=== PATIENT | male | born 1945 | race Caucasian/White ===

== ENCOUNTER 2024-03-08 13:12 | Emergency (ER) | payer MEDICARE, BC ==
[~2024-03-08] VITALS: Ht 160 cm; Wt 53.9 kg
[~2024-03-08 13:12] MED LIST: CLOP75TA34 PO; LEVO100T9 PO
[2024-03-08 13:48] LABS: ALANINE AMINOTRANSFERASE 49 U/L (12-78); ALBUMIN 2.2 G/DL (3.4-5.0); ALBUMIN/GLOBULIN RATIO 0.4 (1.1-1.5); ALKALINE PHOSPHATASE 151 IU/L (46-116); ANION GAP 11 (8-16); ASPARTATE AMINO TRANSFERASE 48 U/L (10-37); BILIRUBIN,TOTAL 0.9 MG/DL (0.1-1.0); BLOOD UREA NITROGEN 24 MG/DL (7-18); BUN/CREATININE RATIO 15.1 (10.0-20.0); CHLORIDE 96 MMOL/L (99-107); CREATININE 1.59 MG/DL (0.60-1.10); GLUCOSE 119 MG/DL (70-104); POTASSIUM 3.5 MMOL/L (3.5-5.1); SODIUM 132 MMOL/L (135-145); TOTAL CARBON DIOXIDE 24.7 MMOL/L (24-32); TOTAL PROTEIN 7.8 G/DL (6.4-8.2); eCRCL 30 ML/MIN; eGFR 43 ML/MIN
[2024-03-08 13:55] LABS: PRO BRAIN NATRIURETIC PEPTIDE 215 PG/ML (0-450)
[2024-03-08 14:20] LABS: BASOPHILS # (AUTO) 0.1 X10'3 (0-0.2); BASOPHILS % (AUTO) 0.4 % (0-1); EOSINOPHILS # (AUTO) 0.1 X10'3 (0-0.9); EOSINOPHILS % (AUTO) 0.3 % (0-6); HEMATOCRIT 38.1 % (42.0-52.0); HEMOGLOBIN 12.6 g/dl (14.0-17.9); LYMPHOCYTES # (AUTO) 1.1 X10'3 (1.1-4.8); LYMPHOCYTES % (AUTO) 4.5 % (21-51); MEAN CORPUSCULAR HEMOGLOBIN 28.1 PG (27.0-31.0); MEAN CORPUSCULAR VOLUME 85.2 FL (78-98); MEAN PLATELET VOLUME 7.3 FL (7.4-10.4); MONOCYTES # (AUTO) 1.7 X10'3 (0-0.9); MONOCYTES % (AUTO) 6.9 % (2-12); NEUTROPHILS # (AUTO) 21.6 X10'3 (1.8-7.7); NEUTROPHILS % (AUTO) 87.9 % (42-75); PLATELET COUNT 427 X10'3 (140-440); RED BLOOD COUNT 4.47 X10'6 (4.70-6.10); RED CELL DISTRIBUTION WIDTH 15.3 % (11.5-14.5); WHITE BLOOD COUNT 24.6 X10'3 (4.5-11.0)
[2024-03-08] MEDS: ipratropium/albuterol 3ml nebule NEB ONE (15:40)
[2024-03-08] MEDS: methylPREDNISolone sod succ 125mg/2ml vial IV ONE (15:55)
[2024-03-08 16:06] VITALS: PULSE 83; RESP 17; O2SAT 98
[2024-03-08 16:30] VITALS: PULSE 84; RESP 17; O2SAT 100
[2024-03-08] MEDS: magnesium 2GM in 50ml NS 50 ML IV SCH (16:57)
[2024-03-08 17:30] VITALS: BP 148/74; PULSE 81; TEMP 98.8; O2SAT 92
[2024-03-08] MEDS: albuterol 2.5 MG/3 ML nebule CONTNEB PRN (17:50)
[2024-03-08 18:31] VITALS: RESP 18
[2024-03-08] MEDS ORDERED: [UNRECOGNIZED DRUG - OTHER] (19:23)
== END 2024-03-08 19:37 | disposition home or self-care (01) ==
LOC: ER 13:13
DX: J44.1 Chronic obstructive pulmonary disease with (acute) exacerbation (principal); J45.909 Unspecified asthma, uncomplicated; Z88.2 Allergy status to sulfonamides; Z88.8 Allergy status to other drugs, medicaments and biological substances
CPT/HCPCS: 36415; 71045; 80053; 83880; 84484; 85025; 93005; 94640; 96365; 96375; 99285; J2930; J3475; A7015

== ENCOUNTER 2025-02-14 15:59 | Inpatient (IN) | payer MEDICARE, BC ==
[~2025-02-14] VITALS: Ht 167.6 cm; Wt 67.1 kg
[~2025-02-14 15:59] MED LIST changes: +ALBU17AE26; +ASPI-1397 PO; +FLUT1BLS13 INH; +GABA-1555 PO; +GUAI600T45 PO; +LACT1CAP26 PO; -LEVO100T9 PO; +LEVO88TA7 PO; +OMEP40CA21 PO
[2025-02-14 16:29] LABS: BASOPHILS # (AUTO) 0.1 X10'3 (0-0.2); BASOPHILS % (AUTO) 0.6 % (0-1); EOSINOPHILS # (AUTO) 0.1 X10'3 (0-0.9); EOSINOPHILS % (AUTO) 0.8 % (0-6); HEMATOCRIT 47.6 % (42.0-52.0); HEMOGLOBIN 15.7 g/dl (14.0-17.9); LYMPHOCYTES # (AUTO) 1.1 X10'3 (1.1-4.8); LYMPHOCYTES % (AUTO) 12.9 % (21-51); MEAN CORPUSCULAR HEMOGLOBIN 28.3 PG (27.0-31.0); MEAN CORPUSCULAR HGB CONC 32.9 g/dL (33.0-36.5); MEAN PLATELET VOLUME 7.5 FL (7.4-10.4); MONOCYTES # (AUTO) 0.8 X10'3 (0-0.9); MONOCYTES % (AUTO) 8.9 % (2-12); NEUTROPHILS # (AUTO) 6.6 X10'3 (1.8-7.7); NEUTROPHILS % (AUTO) 76.8 % (42-75); PLATELET COUNT 382 X10'3 (140-440); RED BLOOD COUNT 5.54 X10'6 (4.70-6.10); RED CELL DISTRIBUTION WIDTH 16.9 % (11.5-14.5); WHITE BLOOD COUNT 8.6 X10'3 (4.5-11.0)
[2025-02-14 16:55] LABS: ALANINE AMINOTRANSFERASE 31 U/L (12-78); ALBUMIN 2.9 G/DL (3.4-5.0); ALBUMIN/GLOBULIN RATIO 0.6 (1.1-1.5); ALKALINE PHOSPHATASE 109 IU/L (46-116); ANION GAP 10 (8-16); ASPARTATE AMINO TRANSFERASE 30 U/L (10-37); BILIRUBIN,TOTAL 0.9 MG/DL (0.1-1.0); BLOOD UREA NITROGEN 25 MG/DL (7-18); BUN/CREATININE RATIO 18.2 (10.0-20.0); CALCIUM 9.2 MG/DL (8.5-10.1); CHLORIDE 105 MMOL/L (99-107); CREATININE 1.37 MG/DL (0.60-1.10); GLUCOSE 103 MG/DL (70-104); POTASSIUM 4.1 MMOL/L (3.5-5.1); SODIUM 139 MMOL/L (135-145); TOTAL CARBON DIOXIDE 23.6 MMOL/L (24-32); TOTAL PROTEIN 7.7 G/DL (6.4-8.2); eCRCL 41 ML/MIN; eGFR 50 ML/MIN
[2025-02-14 17:03] LABS: PRO BRAIN NATRIURETIC PEPTIDE 153 PG/ML (0-450)
[2025-02-14] MEDS ORDERED: iohexol 350MG/ML 100ml bottle IV ONE ×2 (18:45→19:32)
[2025-02-14] MEDS: normal saline 1000ml 1,000 ML IV ONE (19:43)
[2025-02-14] MEDS: CefTRIAXone/D5W-Rocephin 1gm 50 ML IV ONE (19:45)
[2025-02-14] MEDS: azithromycin/NS 500mg/250ml 250 ML IV ONE (20:17)
[2025-02-14] MEDS ORDERED: albuterol 2.5 MG/3 ML nebule NEB PRN (22:25)
[2025-02-14] MEDS ORDERED: acetaminophen 325mg tablet PO PRN ×2 (22:25)
[2025-02-14] MEDS ORDERED: mag hydrox/Alum hydrox/simeth 30ml oral suspension PO PRN (22:25)
[2025-02-14] MEDS ORDERED: potassium Cl 20 mEq SR tablet PO PRN ×2 (22:25)
[2025-02-14] MEDS ORDERED: HYDROmorphone/PF 0.2 MG/ML SYRINGE IV PRN (22:25)
[2025-02-14] MEDS ORDERED: ondansetron/PF 4mg/2ml inj IV PRN (22:25)
[2025-02-14] MEDS ORDERED: potassium Cl 40MEQ/1/2NS 520ml 520 ML IV PRN (22:25)
[2025-02-14] MEDS ORDERED: magnesium sulf-water 4G/100mL 100 ML IV PRN (22:25)
[2025-02-14] MEDS ORDERED: magnesium sulf-water 2g/50mL 50 ML IV PRN (22:25)
[2025-02-14] MEDS ORDERED: magnesium hydroxide 30ml (MOM) UD suspension PO PRN (22:25)
[2025-02-14] MEDS ORDERED: magnesium Cl slow-release 64mg tablet PO PRN (22:25)
[2025-02-14 22:58] VITALS: PULSE 86; RESP 18; O2SAT 95
[2025-02-14] MEDS: ipratropium/albuterol 3ml nebule NEB SCH (22:59)
[2025-02-14] MEDS ORDERED: FLUT1BLS11 PO (22:59)
[2025-02-14 23:01] LABS: FREE T4 (FREE THYROXINE) 1.49 NG/DL (0.73-1.40); THYROID STIMULATING HORMONE 2.38 ulU/ml (0.34-4.50)
[2025-02-14 23:02] LABS: HEMOGLOBIN A1C 6.1 % (4.5-6.2)
[2025-02-14] MEDS ORDERED: IPRA3AMP31 NEB (23:02)
[2025-02-14] MEDS: normal saline 1000ml 1,000 ML IV SCH (23:11)
[2025-02-14 23:33] LABS: BILIRUBIN,URINE NEGATIVE (Neg); CLARITY,URINE CLEAR (Clear); COLOR,URINE YELLOW (Yellow); GLUCOSE, URINE NEGATIVE (Neg); KETONES,URINE TRACE mg/dl (Neg); LEUKOCYTE ESTERASE ,URINE NEGATIVE (Neg); NITRITES, URINE NEGATIVE (Neg); OCCULT BLOOD,URINE NEGATIVE (Neg); PH,URINE 5.5 (4.8-8.0); PROTEIN,URINE 30 mg/dl (Neg); UROBILINOGEN,URINE 0.2 E.U/dL (0.2-1.0)
[2025-02-14 23:43] LABS: UA COLLECTION TYPE NON-SPECIFIED
[2025-02-14 23:44] LABS: BACTERIA,URINE FEW /HPF (Neg); MUCUS STRANDS MODERATE /LPF (Neg); RBC,URINE NONE SEEN /HPF (0-2); SQUAMOUS EPITHELIAL CELL,UR FEW /LPF (FEW); WBC,URINE 0-4 /HPF (0-4)
[2025-02-15] VITALS (19 sets, daily range): BP systolic 113–158; BP diastolic 72–98; PULSE 88–115; RESP 15–40; TEMP 97.3–98; O2SAT 91–98
[2025-02-15] MEDS: tuberculin, purif. prot. deriv. 5 units/0.1ml ID ONE (04:12)
[2025-02-15 06:51] LABS: BASOPHILS % (AUTO) 0.6 % (0-1); EOSINOPHILS # (AUTO) 0.1 X10'3 (0-0.9); EOSINOPHILS % (AUTO) 1.5 % (0-6); HEMATOCRIT 42.1 % (42.0-52.0); HEMOGLOBIN 14.1 g/dl (14.0-17.9); LYMPHOCYTES # (AUTO) 1.1 X10'3 (1.1-4.8); LYMPHOCYTES % (AUTO) 15.8 % (21-51); MEAN CORPUSCULAR HEMOGLOBIN 28.9 PG (27.0-31.0); MEAN CORPUSCULAR HGB CONC 33.4 g/dL (33.0-36.5); MEAN CORPUSCULAR VOLUME 86.5 FL (78-98); MEAN PLATELET VOLUME 7.5 FL (7.4-10.4); MONOCYTES # (AUTO) 0.6 X10'3 (0-0.9); MONOCYTES % (AUTO) 9.3 % (2-12); NEUTROPHILS % (AUTO) 72.8 % (42-75); PLATELET COUNT 321 X10'3 (140-440); RED BLOOD COUNT 4.87 X10'6 (4.70-6.10); RED CELL DISTRIBUTION WIDTH 17.3 % (11.5-14.5); WHITE BLOOD COUNT 6.8 X10'3 (4.5-11.0)
[2025-02-15 07:36] LABS: ALBUMIN 2.5 G/DL (3.4-5.0); ANION GAP 9 (8-16); BLOOD UREA NITROGEN 18 MG/DL (7-18); BUN/CREATININE RATIO 14.6 (10.0-20.0); CALCIUM 8.4 MG/DL (8.5-10.1); CHLORIDE 108 MMOL/L (99-107); CHOLESTEROL 154 MG/DL (0-200); CREATININE 1.23 MG/DL (0.60-1.10); GLUCOSE 75 MG/DL (70-104); HDL CHOLESTEROL 51 MG/DL (35-60); LDL CHOLESTEROL 80 MG/DL (50-100); MAGNESIUM 2.1 MG/DL (1.5-2.4); POTASSIUM 3.8 MMOL/L (3.5-5.1); SODIUM 140 MMOL/L (135-145); TOTAL CARBON DIOXIDE 22.6 MMOL/L (24-32); TRIGLYCERIDES 128 MG/DL (20-135); eCRCL 45 ML/MIN; eGFR 57 ML/MIN
[2025-02-15] MEDS: K and/or MAG REPLACEMENT MC SCH (08:00)
[2025-02-15] MEDS ORDERED: albuterol 60 PUFF/8GM Inhaler (90mcg/1 puff) IH PRN (08:10)
[2025-02-15] MEDS ORDERED: ipratropium/albuterol 3ml nebule NEB PRN (08:35)
[2025-02-15 09:28] LABS: PLATELET ESTIMATE NORMAL; TOTAL CELLS COUNTED 100
[2025-02-15] MEDS: methylPREDNISolone sod succ 125mg/2ml vial IV ONE (09:32)
[2025-02-15] MEDS: CefTRIAXone/D5W-Rocephin 1gm 50 ML IV SCH (09:32)
[2025-02-15] MEDS: pantoprazole 40mg Tablet.DR PO SCH (09:33)
[2025-02-15] MEDS: heparin, porcine 5000 units/ml vial SQ SCH (09:33)
[2025-02-15] MEDS: docusate sod 100mg capsule PO SCH (09:33)
[2025-02-15] MEDS: ipratropium/albuterol 3ml nebule NEB SCH (10:48)
[2025-02-15] MEDS: azithromycin 250mg tablet PO SCH (11:23)
[2025-02-15] MEDS: methylPREDNISolone sod succ 125mg/2ml vial IV SCH (16:09)
[2025-02-15] MEDS ORDERED: OMEPRAZOLE 20 MG TABLET PO SCH ×3 (20:50→20:58)
[2025-02-15] MEDS: gabapentin 400mg capsule PO SCH (22:26)
[2025-02-15] MEDS: OMEPRAZOLE 20 MG TABLET PO SCH (22:27)
[2025-02-16] VITALS (19 sets, daily range): BP systolic 102–129; BP diastolic 49–76; PULSE 80–99; RESP 18–26; TEMP 97.2–97.7; O2SAT 91–100
[2025-02-16 06:47] LABS: BASOPHILS % (AUTO) 0.2 % (0-1); EOSINOPHILS % (AUTO) 0 % (0-6); HEMATOCRIT 38.1 % (42.0-52.0); HEMOGLOBIN 12.7 g/dl (14.0-17.9); LYMPHOCYTES # (AUTO) 0.6 X10'3 (1.1-4.8); LYMPHOCYTES % (AUTO) 6.2 % (21-51); MEAN CORPUSCULAR HEMOGLOBIN 28.8 PG (27.0-31.0); MEAN CORPUSCULAR HGB CONC 33.3 g/dL (33.0-36.5); MEAN CORPUSCULAR VOLUME 86.6 FL (78-98); MEAN PLATELET VOLUME 7.5 FL (7.4-10.4); MONOCYTES # (AUTO) 0.5 X10'3 (0-0.9); MONOCYTES % (AUTO) 5.5 % (2-12); NEUTROPHILS # (AUTO) 7.9 X10'3 (1.8-7.7); NEUTROPHILS % (AUTO) 88.1 % (42-75); PLATELET COUNT 275 X10'3 (140-440); RED CELL DISTRIBUTION WIDTH 17.6 % (11.5-14.5)
[2025-02-16 07:02] LABS: ALBUMIN 2.2 G/DL (3.4-5.0); ANION GAP 10 (8-16); BLOOD UREA NITROGEN 18 MG/DL (7-18); BUN/CREATININE RATIO 16.4 (10.0-20.0); CALCIUM 8.2 MG/DL (8.5-10.1); CHLORIDE 111 MMOL/L (99-107); GLUCOSE 153 MG/DL (70-104); POTASSIUM 3.9 MMOL/L (3.5-5.1); SODIUM 142 MMOL/L (135-145); TOTAL CARBON DIOXIDE 20.6 MMOL/L (24-32); eCRCL 51 ML/MIN; eGFR 65 ML/MIN
[2025-02-16] MEDS ORDERED: levoTHYROXINE 88mcg tablet PO SCH (08:00)
[2025-02-16] MEDS: ringers solution, lacted 1,000 ML IV SCH (08:31)
[2025-02-16] MEDS: aspirin 81mg, enteric-coated 1 TAB TABLET.DR PO SCH (08:32)
[2025-02-16 08:37] LABS: APTT 27 SECONDS (22-32); INR 1.3 INR; PROTHROMBIN TIME 12.6 SECONDS (9.0-12.0)
[2025-02-16 11:15] LABS: ABG HCO3 18.6 mmol/L (21.0-28.0); ABG OXYGEN SATURATION 96.4 % (94.0-98.0); ABG PCO2 (T) 26.7 mmHg (35.0-48.0); ABG PH (T) 7.458 (7.350-7.450); ABG PO2 (T) 79.5 mmHg (83.0-108.0); ALLEN'S TEST POSITIVE; FCOHb 0.6 % (0.5-1.5); FHHb 3.6 % (0.0-5.0); FLOW 5 L/min; FMetHb 0.3 % (0.0-1.5); FO2Hb 95.5 % (94.0-98.0); MODE NASAL CANNULA; PATIENT TEMPERATURE 36.4
[2025-02-17] VITALS (18 sets, daily range): BP systolic 110–147; BP diastolic 64–88; PULSE 75–107; RESP 12–32; TEMP 97–98.2; O2SAT 95–100
[2025-02-17 05:14] LABS: HBSAG SCREEN Negative (Negative); HEP B CORE AB, TOT Negative (Negative); HEP B SURF AB Reactive (.); HEPATITIS C VIRUS ANTIBODY Non Reactive (Non Reactive)
[2025-02-17 07:22] LABS: ALBUMIN 2.2 G/DL (3.4-5.0); ANION GAP 8 (8-16); BLOOD UREA NITROGEN 25 MG/DL (7-18); BUN/CREATININE RATIO 21.2 (10.0-20.0); CALCIUM 8.4 MG/DL (8.5-10.1); CHLORIDE 110 MMOL/L (99-107); CREATININE 1.18 MG/DL (0.60-1.10); GLUCOSE 194 MG/DL (70-104); MAGNESIUM 2.2 MG/DL (1.5-2.4); POTASSIUM 4.2 MMOL/L (3.5-5.1); SODIUM 140 MMOL/L (135-145); TOTAL CARBON DIOXIDE 22.4 MMOL/L (24-32); eCRCL 47 ML/MIN; eGFR 60 ML/MIN
[2025-02-17 07:27] LABS: BASOPHILS % (AUTO) 0.3 % (0-1); EOSINOPHILS % (AUTO) 0 % (0-6); HEMATOCRIT 37.6 % (42.0-52.0); LYMPHOCYTES # (AUTO) 0.4 X10'3 (1.1-4.8); LYMPHOCYTES % (AUTO) 4.1 % (21-51); MEAN CORPUSCULAR HGB CONC 31.8 g/dL (33.0-36.5); MEAN CORPUSCULAR VOLUME 88.1 FL (78-98); MEAN PLATELET VOLUME 7.5 FL (7.4-10.4); MONOCYTES # (AUTO) 0.4 X10'3 (0-0.9); MONOCYTES % (AUTO) 4.4 % (2-12); NEUTROPHILS # (AUTO) 8.8 X10'3 (1.8-7.7); NEUTROPHILS % (AUTO) 91.2 % (42-75); PLATELET COUNT 270 X10'3 (140-440); RED BLOOD COUNT 4.27 X10'6 (4.70-6.10); RED CELL DISTRIBUTION WIDTH 17.4 % (11.5-14.5); WHITE BLOOD COUNT 9.6 X10'3 (4.5-11.0)
[2025-02-17] MEDS: CefTRIAXone/D5W-Rocephin 1gm 50 ML IV SCH (20:40)
[2025-02-17] MEDS: gabapentin 300mg capsule PO SCH (20:42)
[2025-02-18] VITALS (20 sets, daily range): BP systolic 128–145; BP diastolic 79–96; PULSE 88–117; RESP 15–24; TEMP 97.2–98.6; O2SAT 90–100
[2025-02-18] MEDS: methylPREDNISolone sod succ 125mg/2ml vial IV SCH (08:07)
[2025-02-18 08:09] LABS: BASOPHILS % (AUTO) 0.1 % (0-1); EOSINOPHILS % (AUTO) 0 % (0-6); HEMATOCRIT 38.8 % (42.0-52.0); HEMOGLOBIN 12.8 g/dl (14.0-17.9); LYMPHOCYTES # (AUTO) 0.7 X10'3 (1.1-4.8); LYMPHOCYTES % (AUTO) 7.8 % (21-51); MEAN CORPUSCULAR HEMOGLOBIN 28.5 PG (27.0-31.0); MEAN CORPUSCULAR HGB CONC 32.9 g/dL (33.0-36.5); MEAN CORPUSCULAR VOLUME 86.6 FL (78-98); MEAN PLATELET VOLUME 7.3 FL (7.4-10.4); MONOCYTES # (AUTO) 0.6 X10'3 (0-0.9); MONOCYTES % (AUTO) 6.2 % (2-12); NEUTROPHILS # (AUTO) 7.9 X10'3 (1.8-7.7); NEUTROPHILS % (AUTO) 85.9 % (42-75); PLATELET COUNT 297 X10'3 (140-440); RED BLOOD COUNT 4.48 X10'6 (4.70-6.10); RED CELL DISTRIBUTION WIDTH 17.5 % (11.5-14.5); WHITE BLOOD COUNT 9.2 X10'3 (4.5-11.0)
[2025-02-18 08:18] LABS: ALBUMIN 2.6 G/DL (3.4-5.0); ANION GAP 8 (8-16); BLOOD UREA NITROGEN 20 MG/DL (7-18); BUN/CREATININE RATIO 16.9 (10.0-20.0); CALCIUM 8.6 MG/DL (8.5-10.1); CHLORIDE 108 MMOL/L (99-107); CREATININE 1.18 MG/DL (0.60-1.10); GLUCOSE 130 MG/DL (70-104); MAGNESIUM 1.9 MG/DL (1.5-2.4); POTASSIUM 3.7 MMOL/L (3.5-5.1); SODIUM 142 MMOL/L (135-145); TOTAL CARBON DIOXIDE 26.3 MMOL/L (24-32); eCRCL 47 ML/MIN; eGFR 60 ML/MIN
[2025-02-19] VITALS (20 sets, daily range): BP systolic 116–148; BP diastolic 73–92; PULSE 72–107; RESP 15–22; TEMP 97.5–98.5; O2SAT 91–97
[2025-02-19 06:46] LABS: BASOPHILS % (AUTO) 0.1 % (0-1); EOSINOPHILS % (AUTO) 0 % (0-6); LYMPHOCYTES # (AUTO) 0.6 X10'3 (1.1-4.8); MEAN CORPUSCULAR HEMOGLOBIN 29.2 PG (27.0-31.0); MEAN CORPUSCULAR HGB CONC 34.1 g/dL (33.0-36.5); MEAN CORPUSCULAR VOLUME 85.6 FL (78-98); MEAN PLATELET VOLUME 7.3 FL (7.4-10.4); MONOCYTES # (AUTO) 0.6 X10'3 (0-0.9); MONOCYTES % (AUTO) 7.3 % (2-12); NEUTROPHILS # (AUTO) 7.4 X10'3 (1.8-7.7); NEUTROPHILS % (AUTO) 85.6 % (42-75); PLATELET COUNT 270 X10'3 (140-440); RED BLOOD COUNT 4.44 X10'6 (4.70-6.10); RED CELL DISTRIBUTION WIDTH 16.9 % (11.5-14.5); WHITE BLOOD COUNT 8.6 X10'3 (4.5-11.0)
[2025-02-19 06:53] LABS: ALBUMIN 2.5 G/DL (3.4-5.0); ANION GAP 9 (8-16); BLOOD UREA NITROGEN 22 MG/DL (7-18); CALCIUM 8.5 MG/DL (8.5-10.1); CHLORIDE 106 MMOL/L (99-107); CREATININE 1.16 MG/DL (0.60-1.10); GLUCOSE 154 MG/DL (70-104); POTASSIUM 3.8 MMOL/L (3.5-5.1); SODIUM 141 MMOL/L (135-145); TOTAL CARBON DIOXIDE 25.9 MMOL/L (24-32); eCRCL 48 ML/MIN; eGFR 61 ML/MIN
[2025-02-19 07:42] LABS: ANISOCYTOSIS 1+; PLATELET ESTIMATE NORMAL; TOTAL CELLS COUNTED 100
[2025-02-19 07:43] LABS: POIKILOCYTOSIS FEW
[2025-02-19] MEDS: methylPREDNISolone sod succ/PF 40mg inj. IV SCH (07:53)
[2025-02-19] MEDS: metoprolol tartrate 12.5mg (1/2 tablet) PO SCH (08:00)
[2025-02-20] VITALS (10 sets, daily range): BP systolic 135–150; BP diastolic 80–90; PULSE 75–96; RESP 16–20; TEMP 97.3–98.5; O2SAT 93–99
[2025-02-20] MEDS ORDERED: PRED10TA PO (07:50)
[2025-02-20] MEDS ORDERED: LEVO75CA6 PO (07:50)
[2025-02-20] MEDS: methylPREDNISolone sod succ/PF 40mg inj. IV SCH (08:14)
[2025-02-20 09:21] LABS: BASOPHILS % (AUTO) 0.3 % (0-1); EOSINOPHILS % (AUTO) 0 % (0-6); HEMATOCRIT 41.1 % (42.0-52.0); HEMOGLOBIN 13.7 g/dl (14.0-17.9); LYMPHOCYTES # (AUTO) 1.2 X10'3 (1.1-4.8); LYMPHOCYTES % (AUTO) 10.3 % (21-51); MEAN CORPUSCULAR HEMOGLOBIN 28.4 PG (27.0-31.0); MEAN CORPUSCULAR HGB CONC 33.3 g/dL (33.0-36.5); MEAN CORPUSCULAR VOLUME 85.2 FL (78-98); MEAN PLATELET VOLUME 7.6 FL (7.4-10.4); MONOCYTES # (AUTO) 0.9 X10'3 (0-0.9); MONOCYTES % (AUTO) 8.1 % (2-12); NEUTROPHILS # (AUTO) 9.2 X10'3 (1.8-7.7); NEUTROPHILS % (AUTO) 81.3 % (42-75); PLATELET COUNT 281 X10'3 (140-440); RED BLOOD COUNT 4.83 X10'6 (4.70-6.10); RED CELL DISTRIBUTION WIDTH 17.5 % (11.5-14.5); WHITE BLOOD COUNT 11.4 X10'3 (4.5-11.0)
[2025-02-20 10:26] LABS: ALANINE AMINOTRANSFERASE 39 U/L (12-78); ALBUMIN 2.7 G/DL (3.4-5.0); ALBUMIN/GLOBULIN RATIO 0.9 (1.1-1.5); ALKALINE PHOSPHATASE 90 IU/L (46-116); ANION GAP 6 (8-16); ASPARTATE AMINO TRANSFERASE 19 U/L (10-37); BILIRUBIN,TOTAL 0.4 MG/DL (0.1-1.0); BLOOD UREA NITROGEN 22 MG/DL (7-18); CALCIUM 8.5 MG/DL (8.5-10.1); CHLORIDE 104 MMOL/L (99-107); GLUCOSE 101 MG/DL (70-104); POTASSIUM 3.9 MMOL/L (3.5-5.1); SODIUM 140 MMOL/L (135-145); TOTAL CARBON DIOXIDE 29.7 MMOL/L (24-32); TOTAL PROTEIN 5.8 G/DL (6.4-8.2); eCRCL 51 ML/MIN; eGFR 65 ML/MIN
[2025-02-20] MEDS ORDERED: CLOP75TA34 PO (12:33)
[2025-02-20] MEDS ORDERED: LACT1CAP26 PO (12:33)
[2025-02-21 05:13] LABS: HEP B CORE AB, TOT Negative (Negative); HEP B SURF AB Reactive (.)
== END 2025-02-20 12:28 | disposition home or self-care (01) | DRG 871 ==
LOC: ER 16:00 → ED HOLD 22:30 → EDBEDREQ 23:31 → PCU 3S 02-15 00:05
PROVIDERS: ADMIT Surgery Surgical Critical Care; ATTEND Family Medicine
PROC: B32T1ZZ Computerized Tomography (CT Scan) of Left Pulmonary Artery using Low Osmolar Contrast (ICD-10-PCS; 2025-02-14)
PROC: B3201ZZ Computerized Tomography (CT Scan) of Thoracic Aorta using Low Osmolar Contrast (ICD-10-PCS; 2025-02-14)
PROC: B32S1ZZ Computerized Tomography (CT Scan) of Right Pulmonary Artery using Low Osmolar Contrast (ICD-10-PCS; 2025-02-14)
PROC: 5A0935A Assistance with Respiratory Ventilation, Less than 24 Consecutive Hours, High Flow/Velocity Cannula (ICD-10-PCS; principal; 2025-02-15)
DX: A41.9 Sepsis, unspecified organism (principal); J18.9 Pneumonia, unspecified organism; J80 Acute respiratory distress syndrome; J44.1 Chronic obstructive pulmonary disease with (acute) exacerbation; E87.3 Alkalosis; J44.0 Chronic obstructive pulmonary disease with (acute) lower respiratory infection; J98.11 Atelectasis; Z20.822 Contact with and (suspected) exposure to COVID-19; E03.9 Hypothyroidism, unspecified; E11.22 Type 2 diabetes mellitus with diabetic chronic kidney disease; E11.42 Type 2 diabetes mellitus with diabetic polyneuropathy; K21.9 Gastro-esophageal reflux disease without esophagitis; N18.30 Chronic kidney disease, stage 3 unspecified; E11.51 Type 2 diabetes mellitus with diabetic peripheral angiopathy without gangrene; E05.80 Other thyrotoxicosis without thyrotoxic crisis or storm; R04.0 Epistaxis; Z79.899 Other long term (current) drug therapy; Z87.891 Personal history of nicotine dependence; Z63.4 Disappearance and death of family member; Z88.2 Allergy status to sulfonamides; Z88.5 Allergy status to narcotic agent
CPT/HCPCS: 36415; 36600; 71045; 71275; 80048; 80053; 80061; 81001; 82803; 83036; 83605; 83735; 83880; 84145; 84439; 84443; 84484; 85007; 85018; 85025; 85610; 85730; 86480; 86704; 86706; 86803; 87040; 87081; 87340; 87502; 87503; 87522; 87811; 93005; 93306; 94640; 94664; 94668; 94760; 96361; 96365; 97116; 97161; 97530; 99285; A4615; G0378; J0456; J0696; J1644; J2919; J3490; J7030; J7040; J7120; Q9967